=== PATIENT | male | born 1970 | race Caucasian/White ===

== ENCOUNTER 2018-08-05 08:07 | Emergency (ER) | payer SELFPAY ==
[~2018-08-05] VITALS: Ht 182.9 cm; Wt 97.5 kg
--- NOTE | 2018-08-05 08:40 | ED Back Pain ---
General Chief Complaint: Back Problems Stated Complaint: BACK PAIN Nursing Triage Note: Pt ambulates to ED with spouse reporting severe back pain since Saturday. Pt mowed prior to the pain. Pt hx severe back pain with 3 disc involvement per prior MRI studies. Pt states his Hydrocodone, Ibuprofen, and Flexeril did not work yesterday and so maintains just being in bed. Nursing Sepsis Screen: No Definite Risk Source of Information: Patient Exam Limitations: No Limitations History of Present Illness Date Seen by Provider: Aug 05, 2018 Time Seen by Provider: 08:35 Initial Comments Patient is a 47-year-old male with history of chronic back pain, herniated lumbar disks who presents with exacerbation of chronic back pain. Patient states symptoms worsened 3 days ago after mowing yard. Pain is nonradiating, and is described as sharp, rated moderate to severe is worse with position change and movement. States pain is associated with lower extremity weakness, loss of sensation. No urinary or bowel incontinence. Patient has been taking hydrocodone, Flexeril and ibuprofen with limited relief. Location: Lumbar Spine, Paraspinous Muscles Timing/Duration: 1-2 Days Severity: Moderate, Severe Pain/Injury Location: Back Modifying Factors: Improves With Pain Medication, Improves With Rest Associated Symptoms: muscle spasms; No fever, No weakness, No tingling in legs/ feet, No sensory/motor loss; lower back pain; No loss of bladder control, No loss of bowel control Allergies and Home Medications Allergies Uncoded Allergies: PENICILLIN (Allergy, Severe, Anaphylaxis, 08/05/18) Patient Home Medication List Home Medication List Reviewed: Yes Review of Systems Constitutional: no symptoms reported EENTM: no symptoms reported Respiratory: no symptoms reported Cardiovascular: no symptoms reported Genitourinary: no symptoms reported Musculoskeletal: see HPI Skin: no symptoms reported Psychiatric/Neurological: No Symptoms Reported Past Pvavnwz-Tmzohr-Uunpvr Hx Past Med/Social Hx: Reviewed Nursing Past Med/Soc Hx Patient Social History Alcohol Use: Past History Recreational Drug Use: No Smoking Status: Current Everyday Smoker Type Used: Cigarettes Recent Foreign Travel: No Contact w/Someone Who Travel: No Recent Infectious Disease Expo: No Recent Hopitalizations: No Physical Abuse: No Sexual Abuse: No Mistreated: No Fear: No Seasonal Allergies Seasonal Allergies: No Past Medical History Surgeries: Yes (left ankle fracture) Orthopedic Respiratory: No Cardiac: No Neurological: No Genitourinary: No Gastrointestinal: No Musculoskeletal: Yes (Reports 3 bad disks) Chronic Back Pain Endocrine: No HEENT: No Cancer: No Psychosocial: No Blood Disorders: No Physical Exam Vital Signs Vital Signs - First Documented 08/05/18 08:13 Temp 97.5 Pulse 95 Resp 20 B/P (MAP) 146/96 (113) Pulse Ox 99 O2 Delivery Room Air Capillary Refill : Less Than 3 Seconds Height, Weight, BMI Height: 6'0" Weight: 215lbs. oz. 97.850186ml; BMI Method:Stated General Appearance: Mild Distress HEENT: PERRL/EOMI, Normal ENT Inspection Neck: Full Range of Motion, Normal Inspection, Supple Cardiovascular: Regular Rate, Rhythm Respiratory: Chest Non Tender, Lungs Clear Gastrointestinal: Normal Bowel Sounds Back: No No CVA Tenderness, No No Vertebral Tenderness, No CVA Tenderness (L), No CVA Tenderness (R); Decreased Range of Motion (diffuse low back pain, muscle spasm. Pain reproduces with palpation, and trunk rotation.), Muscle Spasm; No Vertebral Tenderness Extremity: Non Tender Neurologic/Psychiatric: Alert, Oriented x3, No Motor/Sensory Deficits; No Motor Weakness, No Sensory Deficit Skin: Normal Color Progress/Results/Core Measures Results/Orders My Orders Orders - SHAN ORTIZ DO Ketorolac Injection (Toradol Injection) (08/05/18 08:45) Diazepam Injection (Valium Injection) (08/05/18 08:45) Vital Signs/I&O 08/05/18 08:13 Temp 97.5 Pulse 95 Resp 20 B/P (MAP) 146/96 (113) Pulse Ox 99 O2 Delivery Room Air Blood Pressure Mean: 113 Departure Communication (Admissions) Exacerbation of chronic back pain without neurologic compromise. Pain addressed. Will discharge steroid Dosepak with instructions to follow up with PCP for further management of chronic pain. Impression Primary Impression: Back strain Disposition: HOME, SELF-CARE Condition: Improved Departure-Patient Inst. Referrals: NO,LOCAL PHYSICIAN (PCP/Family) Primary Care Physician Patient Instructions: MANAGING YOUR CHRONIC PAIN, Low Back Pain (DC) Add. Discharge Instructions: Please take newly prescribed medications as directed on with home pain medication. Follow-up with your PCP for further management recommendations All discharge instructions reviewed with patient and/or family. Voiced understanding. Scripts Methylprednisolone (Methylprednisolone) 4 Mg Tablet 4 MG PO UD for 6 Days, #21 TAB FOLLOW DOSE PACK INSTRUCTIONS Prov: SHAN ORTIZ DO 08/05/18 SHAN ORTIZ DO Aug 05, 2018 08:40
[2018-08-05] MEDS ORDERED: METH4TAB11 PO (08:41)
[2018-08-05] MEDS ORDERED: KETOROLAC 60 MG/2 ML VIAL IM ONE (08:45)
[2018-08-05] MEDS ORDERED: DIAZEPAM INJ 10 MG/2 ML (VALIUM) SYR IM ONE (08:45)
[2018-08-05] MEDS ORDERED: DIAZEPAM 5 MG (VALIUM) TABLET PO ONE ×2 (08:45)
[2018-08-05 08:56] VITALS: BP 142/93
--- OUTSIDE RECORDS SUMMARY | 2018-08-05 11:01 | XMS REPORT ---
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 Name Role Phone DANILO STONE Unavailable PROBLEMS Unknown Problems ALLERGIES Substance Reaction Event Type Date Status Penicillin V Potassium Unknown Drug Allergy Nov, Active ENCOUNTERS Encounter Location Date Diagnosis [facility] [address] [id number] [id number] Nov, Dental caries K02.9 [facility] [address] [id number] [id number] Nov, Dental examination Z01.20 IMMUNIZATIONS No Known Immunizations SOCIAL HISTORY Never Assessed REASON FOR VISIT MULTI TE PLAN OF CARE Activity Details Follow Up 2 Months Reason:hygiene NEEDS NOTE FOR WORK TO STAY HOME TONIGHT VITAL SIGNS Blood pressure systolic 109 mmHg 2016-12-18 Blood pressure diastolic 64 mmHg 2016-12-18 MEDICATIONS Medication Instructions Dosage Frequency Start Date End Date Duration Status Hydrocodone-Acetaminophen Active [place] 5-325 MG Orally every 6 hrs 1 tablet as needed 6h 4 days Active Flexeril Active RESULTS No Results PROCEDURES Procedure Date Ordered Result Body Site EXTRAC ERUPTED TOOTH/EXPOSED ROOT Dec 18, 2016 EXTRAC ERUPTED TOOTH/EXPOSED ROOT Dec 18, 2016 EXTRAC ERUPTED TOOTH/EXPOSED ROOT Dec 18, 2016 EXTRAC ERUPTED TOOTH/EXPOSED ROOT Dec 18, 2016 SURG REMOVAL ERUPTED TOOTH Dec 18, 2016 EXTRAC ERUPTED TOOTH/EXPOSED ROOT Dec 18, 2016 INSTRUCTIONS MEDICATIONS ADMINISTERED No Known Medications
--- OUTSIDE RECORDS SUMMARY | 2018-08-05 11:01 | XMS REPORT ---
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 Name Role Phone DANILO MARAVILLA Unavailable PROBLEMS Unknown Problems ALLERGIES Substance Reaction Event Type Date Status Penicillin V Potassium Unknown Drug Allergy Nov, Active ENCOUNTERS Encounter Location Date Diagnosis [facility] [address] [facility] [id number] [id number] Nov, Dental caries K02.9 [facility] [address] [id number] [id number] Nov, Dental examination Z01.20 IMMUNIZATIONS No Known Immunizations SOCIAL HISTORY Never Assessed REASON FOR VISIT farhan PLAN OF CARE Activity Details Follow Up prn Reason:[address] Maravilla VITAL SIGNS Blood pressure systolic 127 mmHg 2016-12-11 Blood pressure diastolic 86 mmHg 2016-12-11 MEDICATIONS Medication Instructions Dosage Frequency Start Date End Date Duration Status Hydrocodone-Acetaminophen Active Flexeril Active RESULTS No Results PROCEDURES Procedure Date Ordered Result Body Site COMP ORAL EVALUATION - NEW/EST PT Dec 11, 2016 INTRAORL-PERIAPICAL 1 FILM [id number] Dec 11, 2016 PANORAMIC FILM SEE ALSO CODE 51703 Dec 11, 2016 BITEWINGS - FOUR FILMS Dec 11, 2016 INTRAORL-PERIAPICAL EA ADD FILM Dec 11, 2016 INTRAORL-PERIAPICAL EA ADD FILM Dec 11, 2016 INTRAORL-PERIAPICAL EA ADD FILM Dec 11, 2016 INTRAORL-PERIAPICAL EA ADD FILM Dec 11, 2016 INSTRUCTIONS MEDICATIONS ADMINISTERED No Known Medications
== END 2018-08-05 08:56 | disposition home or self-care (01) ==
LOC: ER FS 08:09
DX: S39.012A Strain of muscle, fascia and tendon of lower back, initial encounter (principal); F17.210 Nicotine dependence, cigarettes, uncomplicated; Z88.0 Allergy status to penicillin; X50.0XXA Overexertion from strenuous movement or load, initial encounter; Y92.007 Garden or yard of unspecified non-institutional (private) residence as the place of occurrence of the external cause
CPT/HCPCS: 99284

== ENCOUNTER 2020-02-07 13:44 | Emergency (ER) | payer OTHER ==
[~2020-02-07 13:44] MED LIST: METH4TAB11 PO
[2020-02-07 13:50] VITALS: BP 176/98
[2020-02-07] MEDS ORDERED: CLIN300C11 PO (13:59)
[2020-02-07] MEDS ORDERED: HYDR-3820 PO (13:59)
[2020-02-07] MEDS ORDERED: IBUP-1780 PO (13:59)
--- NOTE | 2020-02-07 14:01 | ED EENT ---
History of Present Illness General Chief Complaint: Dental Problems/Pain Stated Complaint: DENTAL PAIN Nursing Triage Note: Is having dental pain on left lower side of mouth. States it started yesterday after eating bread sticks. States he has bad teeth and has not feel to a dentist in a long time. Source: patient History of Present Illness Date Seen by Provider: Feb 07, 2020 Time Seen by Provider: 13:46 Initial Comments 49-year-old male presenting with dental pain since yesterday. He has widespread dental decay and multiple missing teeth. He states that he was eating breadsticks Saturday and about 30 minutes after doing so he started to have severe pain. He has tried ibuprofen and Tylenol with little to no improvement. He has had similar episodes in the past of pain that were associated with dental infection. He states that he recently obtained dental insurance but has not seen dentist just yet. He denies any fever or chills. He has not had any drainage from the tooth. He has pain with palpation and movement the tooth. There is pain underneath his jaw as well. Temperature change also makes increased pain to the tooth. Timing/Duration: abrupt, yesterday Severity: severe Location: mouth Prearrival Treatment: over the counter meds Associated Symptoms: facial pain/swelling, tooth pain Allergies and Home Medications Allergies Coded Allergies: Penicillins (Verified Allergy, Unknown, anaphylaxis, 02/07/20) Home Medications Clindamycin HCl 300 Mg Capsule, 300 MG PO TID Prescribed by: GERARDO DAVIS on 02/07/20 1359 Hydrocodone/Acetaminophen 1 Each Tablet, 1 EACH PO Q6H PRN for PAIN-SEVERE (8- 10) Prescribed by: GERARDO DAVIS on 02/07/20 1400 Ibuprofen 800 Mg Tablet, 800 MG PO Q8H PRN for PAIN Prescribed by: GERARDO DAVIS on 02/07/20 1359 Methylprednisolone 4 Mg Tablet, 4 MG PO UD FOLLOW DOSE PACK INSTRUCTIONS Prescribed by: SHAN ORTIZ on 08/05/18 0841 Patient Home Medication List Home Medication List Reviewed: Yes Review of Systems Review of Systems Constitutional: No chills, No fever Eyes: No Symptoms Reported Ears: No Symptoms Reported Nose: no symptoms reported Mouth: see HPI, pain, swelling; denies bloody discharge, denies clear discharge, denies purulent discharge, denies serosanguinous discharge Throat: no symptoms reported Respiratory: cough (chronic from smoking), dyspnea on exertion (chronic from smoking), short of breath (chronic from smoking), wheezing (chronic from smoking) Cardiovascular: no symptoms reported Gastrointestinal: no symptoms reported Musculoskeletal: no symptoms reported Skin: no symptoms reported Neurological: No Symptoms Reported Hematologic/Lymphatic: No Symptoms Reported Past Koiqrub-Hsakac-Btatcv Hx Past Med/Social Hx: Reviewed Nursing Past Med/Soc Hx Patient Social History Alcohol Use: Denies Use Recreational Drug Use: No Smoking Status: Current Everyday Smoker Type Used: Cigarettes 2nd Hand Smoke Exposure: Yes Recent Foreign Travel: No Contact w/Someone Who Travel: No Recent Infectious Disease Expo: No Recent Hopitalizations: No Physical Abuse: No Sexual Abuse: No Mistreated: No Fear: No Seasonal Allergies Seasonal Allergies: No Past Medical History Surgeries: Yes (left ankle fracture) Orthopedic Respiratory: No Cardiac: No Neurological: No Genitourinary: No Gastrointestinal: No Musculoskeletal: Yes (Reports 3 bad discs) Chronic Back Pain Endocrine: No HEENT: No Cancer: No Psychosocial: No Blood Disorders: No Physical Exam Vital Signs Vital Signs - First Documented 02/07/20 13:50 Temp 36.2 Pulse 81 Resp 16 B/P (MAP) 176/98 (124) Pulse Ox 100 Height, Weight, BMI Height: 6'0" Weight: 215lbs. oz. 97.744342dh; BMI Method:Stated General Appearance: WD/WN, moderate distress Eyes: bilateral eye PERRL, bilateral eye EOMI Nose: normal inspection Mouth/Throat: pharynx normal, dental tenderness, other (widespread dental decay with several missing teeth. 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 Will prescribe this for his dental pain. Also will prescribe clindamycin as he is allergic to penicillin. Prescribed ibuprofen for inflammation. Stressed importance of follow-up with dentist as soon as possible for definitive care Departure Impression Primary Impression: Dental caries Additional Impressions: Pain due to dental caries Dental abscess Disposition: HOME, SELF-CARE Condition: Stable Departure-Patient Inst. Decision time for Depature: 13:56 Referrals: [facility] (PCP) Primary Care Physician CHRISTIN SILVA (Family) Primary Care Physician Patient Instructions: Dental Pain (DC), Tooth Decay, Adult (DC), Tooth Abscess (DC) Add. Discharge Instructions: Take the full course of antibiotics to treat for infection around teeth. Follow up with dentist as soon as possible for definitive care for your teeth All discharge instructions reviewed with patient and/or family. Voiced understanding. Scripts Ibuprofen (Ibuprofen) 800 Mg Tablet 800 MG PO Q8H PRN for PAIN for 10 Days, #30 TAB 0 Refills Prov: GERARDO DAVIS MD 02/07/20 Hydrocodone/Acetaminophen (Hydrocodone-Acetamin 10-325 mg) 1 Each Tablet 1 EACH PO Q6H PRN for PAIN-SEVERE (8-10) for 3 Days, #12 TAB 0 Refills Prov: GERARDO DAVIS MD 02/07/20 Clindamycin HCl (Clindamycin HCl) 300 Mg Capsule 300 MG PO TID for dental abscess for 10 Days, #30 CAP 0 Refills Prov: GERARDO DAVIS MD 02/07/20 Images Mouth/Nose 1 - Caries, Swelling, Tenderness Progress Overall the mouth has widespread decay and several missing teeth GERARDO DAVIS MD Feb 07, 2020 14:00
== END 2020-02-07 14:07 | disposition home or self-care (01) ==
LOC: EDUNIT# 13:44 → ER FS 13:45
DX: K02.9 Dental caries, unspecified (principal); K04.7 Periapical abscess without sinus; G89.29 Other chronic pain; M54.9 Dorsalgia, unspecified; F17.210 Nicotine dependence, cigarettes, uncomplicated; Z88.0 Allergy status to penicillin; Z79.52 Long term (current) use of systemic steroids; Z79.891 Long term (current) use of opiate analgesic
CPT/HCPCS: 99282

== ENCOUNTER 2020-08-16 10:00 | Emergency (ER) | payer OTHER ==
[~2020-08-16] VITALS: Ht 182.8 cm; Wt 107.9 kg
[~2020-08-16 10:00] MED LIST changes: +CLIN300C12 PO; +HYDR-3820 PO; +IBUP-1780 PO
[2020-08-16 10:02] VITALS: BP 112/77
[2020-08-16] MEDS ORDERED: KETOROLAC 30 MG/ML VIAL IVP ONE (10:30)
[2020-08-16] MEDS ORDERED: ORPHENADRINE 60 MG/2 ML (NORFLEX) AMP (ED ONLY) INJ ONE (10:30)
[2020-08-16 10:42] LABS: HEMATOCRIT 45 % (40-54); HEMOGLOBIN 14.9 G/DL (13.3-17.7); MEAN CORPUSCULAR HEMOGLOBIN 28 PG (25-34); MEAN CORPUSCULAR HGB CONC 33 G/DL (32-36); MEAN PLATELET VOLUME 9.8 FL (7.4-10.4); PLATELET COUNT 306 10^3/uL (130-400); WHITE BLOOD COUNT 11.4 10^3/uL (4.3-11.0)
[2020-08-16 10:43] LABS: BASOPHILS % (AUTO) 0 % (0-10); EOSINOPHILS # (AUTO) 0.4 10^3/uL (0.0-0.3); EOSINOPHILS % (AUTO) 3 % (0-10); LYMPHOCYTES # (AUTO) 1.3 X 10^3 (1.0-4.0); LYMPHOCYTES % (AUTO) 12 % (12-44); MEAN CORPUSCULAR VOLUME 85 FL (80-99); MONOCYTES # (AUTO) 0.7 X 10^3 (0.0-1.0); MONOCYTES % (AUTO) 6 % (0-12); NEUTROPHILS % (AUTO) 79 % (42-75)
--- NOTE | 2020-08-16 10:46 | Diagnostic Imaging Report ---
INDICATION: Left sided upper back pain. Chest pain. TECHNIQUE: Two view chest 10:24 AM CORRELATION STUDY: None FINDINGS: The heart size, mediastinal configuration and pulmonary vasculature are within normal limits. There is very mild bibasilar areas of atelectasis. No significant infiltrate. No pneumothorax or effusion. Mild thoracic spondylosis. IMPRESSION: 1. Negative for acute abnormality of the chest. Dictated by: Dictated on workstation # [id number]
--- NOTE | 2020-08-16 11:05 | ED Back Pain ---
General Chief Complaint: Back Problems Stated Complaint: BACK PAIN Nursing Triage Note: Patient reports his left upper back felt "achy" when he woke this morning. He states the pain has continued to sharpen and worsen and now rates his pain at a 9/10. He reports the pain is worse with sitting and deep breathing. Nursing Sepsis Screen: No Definite Risk History of Present Illness Date Seen by Provider: Aug 16, 2020 Time Seen by Provider: 10:10 Initial Comments Patient is a 49-year-old male who presents with left lower thoracic back pain. Pain started earlier this morning upon waking. Pain is described as sharp, continuous, nonradiating is worse with movement and position change. It is is not relieved with rest. He denies cough fever chills, shortness of breath. He denies trauma repetitive strain injury. Denies extremity weakness or loss of sensation. No bowel or bladder changes. No fever cough, chills nausea vomiting or sweats. No chest pain abdominal pain. No other acute symptoms or complaints. No medications or therapies taken prior to ED arrival. Patient has chronic low back pain and is on buprenorphine. Location: T-Spine Timing/Duration: 4-6 Hours Severity: Severe Pain/Injury Location: Other Radiation: Other Method of Injury: Other Modifying Factors: Improves With Other Associated Symptoms: other Allergies and Home Medications Allergies Coded Allergies: Penicillins (Verified Allergy, Unknown, anaphylaxis, 02/07/20) Home Medications Clindamycin HCl 300 Mg Capsule, 300 MG PO TID Prescribed by: GERARDO DAVIS on 02/07/20 1359 Hydrocodone/Acetaminophen 1 Each Tablet, 1 EACH PO Q6H PRN for PAIN-SEVERE (8- 10) Prescribed by: GERARDO DAVIS on 02/07/20 1400 Ibuprofen 800 Mg Tablet, 800 MG PO Q8H PRN for PAIN Prescribed by: GERARDO DAVIS on 02/07/20 1359 Methylprednisolone 4 Mg Tablet, 4 MG PO UD FOLLOW DOSE PACK INSTRUCTIONS Prescribed by: SHAN ORTIZ on 08/05/18 0841 Patient Home Medication List Home Medication List Reviewed: Yes Review of Systems Constitutional: no symptoms reported EENTM: see HPI Respiratory: see HPI Cardiovascular: see HPI Gastrointestinal: see HPI Genitourinary: see HPI Musculoskeletal: see HPI Skin: see HPI Psychiatric/Neurological: See HPI All Other Systems Reviewed Negative Unless Noted: Yes Past Jwtlpnh-Fkstek-Eqzxuu Hx Past Med/Social Hx: Reviewed Nursing Past Med/Soc Hx Patient Social History Alcohol Use: Denies Use Type Used: Cigarettes 2nd Hand Smoke Exposure: Yes Recent Infectious Disease Expo: No Recent Hopitalizations: No Seasonal Allergies Seasonal Allergies: No Past Medical History Surgeries: Yes (left ankle fracture) Orthopedic Respiratory: No Cardiac: No Neurological: No Genitourinary: No Gastrointestinal: No Musculoskeletal: Yes (Reports 3 bad discs) Chronic Back Pain Endocrine: No HEENT: No Cancer: No Psychosocial: No Blood Disorders: No Physical Exam Vital Signs Vital Signs - First Documented 08/16/20 10:02 Temp 36.1 Pulse 85 Resp 22 B/P (MAP) 112/77 (89) Pulse Ox 96 O2 Delivery Room Air Capillary Refill : Less Than 3 Seconds Height, Weight, BMI Height: 6'0" Weight: 215lbs. oz. 97.205637sj; 32.00 BMI Method:Stated General Appearance: Anxious HEENT: PERRL/EOMI, Normal ENT Inspection, Pharynx Normal Neck: Full Range of Motion Cardiovascular: Regular Rate, Rhythm, No Edema Respiratory: Chest Non Tender, Lungs Clear Gastrointestinal: Non Tender, Soft Back: No Vertebral Tenderness, Decreased Range of Motion, Other (Left lower thoracic paravertebral pain tenderness reproduces on exam.) Extremity: Non Tender, No Calf Tenderness Neurologic/Psychiatric: Alert, Oriented x3, No Motor/Sensory Deficits, sample sawyer II- XII Norm as Tested Progress/Results/Core Measures Results/Orders Lab Results Laboratory Tests Test 08/16/20 10:30 Range/Units White Blood Count 11.4 H 4.3-11.0 10^3/uL Red Blood Count 5.24 4.35-5.85 10^6/uL Hemoglobin 14.9 13.3-17.7 G/DL Hematocrit 45 40-54 % Mean Corpuscular Volume 85 80-99 FL Mean Corpuscular Hemoglobin 28 25-34 PG Mean Corpuscular Hemoglobin Concent 33 32-36 G/DL Red Cell Distribution Width 14.3 10.0-14.5 % Platelet Count 306 130-400 10^3/uL Mean Platelet Volume 9.8 7.4-10.4 FL Immature Granulocyte % (Auto) 0 % Neutrophils (%) (Auto) 79 H 42-75 % Lymphocytes (%) (Auto) 12 12-44 % Monocytes (%) (Auto) 6 0-12 % Eosinophils (%) (Auto) 3 0-10 % Basophils (%) (Auto) 0 0-10 % Neutrophils # (Auto) 9.0 H 1.8-7.8 X 10^3 Lymphocytes # (Auto) 1.3 1.0-4.0 X 10^3 Monocytes # (Auto) 0.7 0.0-1.0 X 10^3 Eosinophils # (Auto) 0.4 H 0.0-0.3 10^3/uL Basophils # (Auto) 0.0 0.0-0.1 10^3/uL Immature Granulocyte # (Auto) 0.0 0.0-0.1 10^3/uL Neutrophils % (Manual) 78 % Lymphocytes % (Manual) 13 % Monocytes % (Manual) 4 % Eosinophils % (Manual) 3 % Basophils % (Manual) 0 % Band Neutrophils 2 % D-Dimer 0.29 0.00-0.49 UG/ML Sodium Level 143 135-145 MMOL/L Potassium Level 4.4 3.6-5.0 MMOL/L Chloride Level 108 H 98-107 MMOL/L Carbon Dioxide Level 23 21-32 MMOL/L Anion Gap 12 5-14 MMOL/L Blood Urea Nitrogen 13 7-18 MG/DL Creatinine 0.84 0.60-1.30 MG/DL Estimat Glomerular Filtration Rate > 60 BUN/Creatinine Ratio 15 Glucose Level 106 H 70-105 MG/DL Calcium Level 9.3 8.5-10.1 MG/DL Corrected Calcium 9.1 8.5-10.1 MG/DL Total Bilirubin 0.2 0.1-1.0 MG/DL Aspartate Amino Transf (AST/SGOT) 12 5-34 U/L Alanine Aminotransferase (ALT/SGPT) 13 0-55 U/L Alkaline Phosphatase 93 40-136 U/L Troponin I < 0.30 <0.30 NG/ML Total Protein 6.9 6.4-8.2 GM/DL Albumin 4.2 3.2-4.5 GM/DL My Orders Orders - SHAN ORTIZ DO Cbc And Manual Diff (08/16/20 10:16) Comprehensive Metabolic Panel (08/16/20 10:16) Troponin I Fs (08/16/20 10:16) Fibrin Degradation Products (08/16/20 10:16) Chest Pa/Lat (2 View) (08/16/20 10:16) Ketorolac Injection (Toradol Injection) (08/16/20 10:30) Orphenadrine Inj (Ed Only) (Norflex Inje (08/16/20 10:30) Medications Given in ED Current Medications Medications Dose Ordered Sig/Christine Route Start Time Stop Time Status Last Admin Dose Admin Ketorolac Tromethamine 30 mg ONCE ONCE IVP 08/16/20 10:30 08/16/20 10:31 DC 08/16/20 10:30 30 MG Orphenadrine Citrate 30 mg ONCE ONCE INJ 08/16/20 10:30 08/16/20 10:31 DC 08/16/20 10:30 30 MG Vital Signs/I&O 08/16/20 10:02 Temp 36.1 Pulse 85 Resp 22 B/P (MAP) 112/77 (89) Pulse Ox 96 O2 Delivery Room Air Blood Pressure Mean: 89 Departure Communication (Admissions) Chest x-ray: No acute cardiopulmonary disease. Lab: No acute findings Musculoskeletal back pain reproduces on exam and improved with treatment. Recommend continued home pain regimen with PCP follow-up. Return precautions reviewed.. Impression Primary Impression: Thoracic back pain Disposition: HOME, SELF-CARE Condition: Stable Departure-Patient Inst. Decision time for Depature: 11:12 Referrals: [facility] (PCP/Family) Primary Care Physician Patient Instructions: Back Muscle Strain (DC) Add. Discharge Instructions: Please avoid heavy lifting and vigorous physical activity. Take Flexeril as needed. Continue home pain medication and follow-up with your PCP for further pain management. All discharge instructions reviewed with patient and/or family. Voiced understanding. Scripts Cyclobenzaprine HCl (Cyclobenzaprine HCl) 10 Mg Tablet 10 MG PO Q8H PRN for SPASMS, #15 TAB 0 Refills Prov: SHAN ORTIZ DO 08/16/20 SHAN ORTIZ DO Aug 16, 2020 11:05
[2020-08-16 11:07] LABS: ALANINE AMINOTRANSFERASE 13 U/L (0-55); ALKALINE PHOSPHATASE 93 U/L (40-136); BILIRUBIN,TOTAL 0.2 MG/DL (0.1-1.0); BUN/CREATININE RATIO 15; CALCIUM 9.3 MG/DL (8.5-10.1); CARBON DIOXIDE 23 MMOL/L (21-32); CHLORIDE 108 MMOL/L (98-107); CREATININE SERUM 0.84 MG/DL (0.60-1.30); GFR ESTIMATED > 60; GLUCOSE 106 MG/DL (70-105); POTASSIUM 4.4 MMOL/L (3.6-5.0); SODIUM 143 MMOL/L (135-145)
[2020-08-16 11:08] LABS: ALBUMIN 4.2 GM/DL (3.2-4.5); TOTAL PROTEIN 6.9 GM/DL (6.4-8.2)
[2020-08-16 11:09] LABS: BAND NEUTROPHILS 2 %; BASOPHILS % (MANUAL) 0 %; EOSINOPHILS % (MANUAL) 3 %; LYMPHOCYTES % (MANUAL) 13 %; MONOCYTES % (MANUAL) 4 %; NEUTROPHILS % (MANUAL) 78 %
[2020-08-16] MEDS ORDERED: CYCL10TA9 PO (11:13)
== END 2020-08-16 11:19 | disposition home or self-care (01) ==
LOC: EDUNIT# 10:00 → ER FS 10:02
DX: M54.6 Pain in thoracic spine (principal); G89.29 Other chronic pain; Z77.22 Contact with and (suspected) exposure to environmental tobacco smoke (acute) (chronic); Z88.0 Allergy status to penicillin; Z79.52 Long term (current) use of systemic steroids; Z79.891 Long term (current) use of opiate analgesic
CPT/HCPCS: 36415; 71046; 80053; 84484; 85007; 85027; 85379

== ENCOUNTER 2022-09-11 08:18 | Emergency (ER) | payer SELFPAY ==
[~2022-09-11] VITALS: Ht 182.9 cm; Wt 92.0 kg
[~2022-09-11 08:18] MED LIST changes: +CLIN-144 PO; -CLIN300C12 PO; +CYCL10TA25 PO
[2022-09-11 08:28] VITALS: BP 145/88
[2022-09-11] MEDS ORDERED: CLIN-144 PO (08:44)
--- NOTE | 2022-09-11 08:44 | ED EENT ---
History of Present Illness General Chief Complaint: Dental Problems/Pain Stated Complaint: DENTAL PAIN Source: patient Exam Limitations: no limitations History of Present Illness Date Seen by Provider: September 11, 2022 Time Seen by Provider: 08:28 Initial Comments 51-year-old male with no pertinent past medical history coming in due to right lower tooth pain. He states he has poor dentition at baseline and had 8 teeth pulled years ago. This started hurting around 1 AM this morning acutely. Denies any fever, swelling, voice changes, difficulty swallowing, or any other concerns. Allergies and Home Medications Allergies Coded Allergies: Penicillins (Verified Allergy, Unknown, anaphylaxis, 02/07/20) Patient Home Medication List Home Medication List Reviewed: Yes Clindamycin HCl (Clindamycin HCl) 300 Mg Capsule, 300 MG PO TID Prescribed by: GERARDO DAVIS on 02/07/20 1359 Cyclobenzaprine HCl (Cyclobenzaprine HCl) 10 Mg Tablet, 10 MG PO Q8H PRN for SPASMS Prescribed by: SHAN ORTIZ on 08/16/20 1113 Hydrocodone/Acetaminophen (Hydrocodone-Acetamin 10-325 mg) 1 Each Tablet, 1 EACH PO Q6H PRN for PAIN-SEVERE (8-10) Prescribed by: GERARDO DAVIS on 02/07/20 1400 Ibuprofen (Ibuprofen) 800 Mg Tablet, 800 MG PO Q8H PRN for PAIN Prescribed by: GERARDO DAVIS on 02/07/20 1359 Methylprednisolone (Methylprednisolone Dose Pack) 4 Mg Tablet, 4 MG PO UD Prescribed by: SHAN ORTIZ on 08/05/18 0841 Review of Systems Review of Systems Constitutional: No fever Eyes: No Symptoms Reported Ears: No Symptoms Reported Nose: no symptoms reported Mouth: see HPI Throat: no symptoms reported Respiratory: no symptoms reported Cardiovascular: no symptoms reported Past Uurthux-Ogmkyt-Gmubny Hx Patient Social History Tobacco Use?: Yes Tobacco type used: Cigarettes Smoking Status: Current Everyday Smoker Substance use?: No Alcohol Use?: No Pt feels they are or have been: No Seasonal Allergies Seasonal Allergies: No Past Medical History Surgeries: Yes (left ankle fracture) Orthopedic Respiratory: No Cardiac: No Neurological: No Genitourinary: No Gastrointestinal: No Musculoskeletal: Yes (Reports 3 bad discs) Chronic Back Pain Endocrine: No HEENT: No Cancer: No Psychosocial: No Blood Disorders: No Physical Exam Height, Weight, BMI Height: 6'0" Weight: 215lbs. oz. 97.206037my; 32.00 BMI Method:Stated General Appearance: WD/WN, no apparent distress Mouth/Throat: other (Poor dentition, no abscess felt, no redness or swelling, pain over right lower canine) Neck: non-tender, full range of motion, supple, normal inspection Cardiovascular: regular rate, rhythm, no edema, no murmur Respiratory: chest non-tender, lungs clear, normal breath sounds, no respiratory distress, no accessory muscle use Progress/Results/Core Measures Results/Orders My Orders Orders - ORLANDO FARLEY MD Clindamycin Capsule (Cleocin Capsule) (09/11/22 08:45) Progress Progress Note : Progress Note 51-year-old male with above history coming in due to dental pain. ABCs were intact and vitals were stable on presentation. Physical exam consistent with dental tenderness with no palpable abscess. He is allergic to penicillin with anaphylaxis as a result. We will give him clindamycin here followed by a prescription. I offered him Toradol shot here, but he states he has ibuprofen at home which helped. I believe he stable for discharge with outpatient follow- up. He was sent home with strict return precautions. I discussed that he needs to follow-up with a dentist SARAH to get the tooth out. Departure Impression Primary Impression: Pain, dental Disposition: HOME, SELF-CARE Condition: Stable Departure-Patient Inst. Decision time for Depature: 09:00 Referrals: [facility] (PCP/Family) Primary Care Physician Patient Instructions: Dental Pain ED Add. Discharge Instructions: The antibiotics will help, however this will become a problem again and can become more serious. [facility] to get that tooth out. Take ibuprofen 600 mg every 6 hours as needed for pain. Scripts Clindamycin HCl (Clindamycin HCl) 300 Mg Capsule 300 MG PO QID for 7 Days, #28 CAP Prov: ORLANDO FARLEY MD 09/11/22 Work/School Note: Work Release Form Date Seen in the Emergency Department: September 11, 2022 Return to Work: September 12, 2022 Restrictions: No Restrictions ORLANDO FARLEY MD September 11, 2022 08:44
[2022-09-11] MEDS ORDERED: CLINDAMYCIN 150 MG (CLEOCIN) CAP PO ONE (08:45)
== END 2022-09-11 08:45 | disposition home or self-care (01) ==
LOC: EDUNIT# 08:18 → ER FS 08:22
DX: K00.7 Teething syndrome (principal); F17.210 Nicotine dependence, cigarettes, uncomplicated; Z88.0 Allergy status to penicillin; Z28.310 Unvaccinated for COVID-19
CPT/HCPCS: 99283